=== PATIENT | female | born 1960 | race Caucasian/White ===

== ENCOUNTER 2021-08-30 12:41 | Outpatient (CLI) | payer OTHER, SELFPAY ==
--- NOTE | 2021-08-30 | IMM_PTH ---
PATIENT: TRUONG SMITH LOC: [facility] U#:[id number] AGE/SX: 61/F ROOM: RE08/30/[address]: Dr. Jaqueline Smith MD : 1960 BED: DIS: 08/30/2021 SPEC #: [id number] RECD: 08/31/21 13:54 STATUS: WING REQ #: [id number] MAR: 08/30/21 00:[address]: Jaqueline Smith DEPT: IMMUNOHISTOCHEMISTRY RECD BY: Saira Ca ENTERED: 08/31/21 13:55 SP TYPE: IMMUNO OTHR DR: No Primary Care Phys Tissues: Endocervical Procedures: p16 (initial) KI-67 (add) PHYSICIAN & INSTITUTION [place] [id number] SPECIMEN INFORMATION: Tissue Source: Endocervical curettings Clinical Info: Abnormal pap Specimen Number: [id number] CPT code: 40634, 43344 METHODOLOGY: Deparaffinized sections of prefer/formalin-fixed tissue or PAP/DQ stained slides are incubated with monoclonal/polyclonal antibodies/oligonucleotide probes. Localization is made via biotin free immunoperoxidase method. Appropriate controls are performed and reacted as expected. Results on target cell population are indicated in the following table: RESULTS: ANTIBODY / CLONE RESULT P16 (E6H4) positive, focal, patchy staining Ki-67 (30-9) positive, low These tests were developed and their performance characteristics determined by [facility]. They may not have been cleared or approved by the U.[place]. Food and Drug Administration. The FDA has determined that such clearance or approval is not necessary. The above immunohistochemical/dualISH markers are ordered and reviewed by the Pathologist. INTERPRETATION: Endocervical curettings: Minimal changes suspicious for HPV cytopathic effects. DON:ramakrishna 09/01/2021
--- NOTE | 2021-08-30 | EMB_PTH ---
PATIENT: TRUONG SMITH [facility] U#:[id number] AGE/SX: 61/F ROOM: RE08/30/[address]: Dr. Jaqueline Smith MD : 1960 BED: DIS: 08/30/2021 SPEC #: [id number] RECD: 08/30/21 12:32 STATUS: WING HARLEEN #: [id number] MAR: 08/30/21 00:[address]: Jaqueline Smith DEPT: SURGICAL PATHOLOGY RECD BY: Miranda Eastman ENTERED: 08/30/21 13:23 SP TYPE: ENDOM BX/C ALDO DR: No Primary Care Phys Tissues: Endometrium, NOS Procedures: Surgery Specimen Level IV HEADER OPERATION: Endocervical curettage PRE-OP DIAGNOSIS: Abnormal pap TISSUE SUBMITTED: Endocervical curettings MICROSCOPIC DIAGNOSIS Endocervical curettings: Focal minimal changes suspicious for HPV cytopathic effects. Fragments of benign endocervical mucosa with focal squamous metaplasia. See comment. DON:ramakrishna 08/31/2021 COMMENT Immunohistochemistry ([id number]) for surrogate HPV marker (p16) supports the above diagnosis. Case has been reviewed in consultation with Dr. Porras who concurs with the above diagnosis. IDC:AM MICROSCOPIC DESCRIPTION Slides are reviewed. GROSS DESCRIPTION Received is one container labeled with the patient's name and not further designated. The specimen consists of multiple fragments osborne mucoid tissue that in aggregate measure 2 x 2 x 0.1 cm. The specimen is totally submitted in one cassette. / DON:ramakrishna 08/30/2021 TC:5 CPT: 26165
== END 2021-08-30 23:59 | disposition home or self-care (01) ==
LOC: LABSPEC 13:17
PROVIDERS: Referring Provider Obstetrics & Gynecology; Visit Provider Obstetrics & Gynecology
DX: R87.619 Unspecified abnormal cytological findings in specimens from cervix uteri (principal)
CPT/HCPCS: 88305; 88341; 88342

== ENCOUNTER → 2022-03-09 | Outpatient (CLI) | payer OTHER, SELFPAY ==
--- NOTE | 2022-03-09 | EMB_PTH ---
PATIENT: TRUONG SMITH [facility]#:[id number] AGE/SX: 61/F ROOM: RE03/09/[address]: Dr. Jaqueline Smith MD : 1960 BED: DIS: 03/09/2022 SPEC #: [id number] RECD: 03/09/22 15:51 STATUS: WING HARLEEN #: [id number] MAR: 03/09/22 00:[address]: Jaqueline Smith DEPT: SURGICAL PATHOLOGY RECD BY: Miranda Eastman ENTERED: 03/10/22 09:54 SP TYPE: ENDOM BX/C ALDO DR: Nancy Primary Care Phys Tissues: Endocervical Procedures: Surgery Specimen Level IV HEADER OPERATION: Endocervical curettage PRE-OP DIAGNOSIS: DARION pap TISSUE SUBMITTED: Endocervical curettings MICROSCOPIC DIAGNOSIS Endocervix, curettings: Strips of benign superficial endocervix. Detached fragments of benign squamous mucosa. AM:ramakrishna 03/13/2022 MICROSCOPIC DESCRIPTION Slides are reviewed. GROSS DESCRIPTION Received is one container labeled with the patient's name and not further designated. The specimen consists of multiple irregular fragments of osborne mucoid tissue that in aggregate measure 0.5 x 0.5 x 0.1 cm. The specimen is totally submitted in one cassette. / SJ:ramakrishna 03/10/2022 TC:5 CPT: 30664
== END | disposition home or self-care (01) ==
LOC: LABSPEC 15:53
PROVIDERS: Visit Provider Obstetrics & Gynecology
DX: R89.6 Abnormal cytological findings in specimens from other organs, systems and tissues (principal)
CPT/HCPCS: 88305

== ENCOUNTER → 2022-09-04 | Outpatient (CLI) | payer OTHER, SELFPAY ==
[2022-09-12 16:34] LABS: HPV APTIMA, High Risk Negative (Negative)
== END | disposition home or self-care (01) ==
LOC: LABSPEC 16:16
PROVIDERS: Referring Provider Obstetrics & Gynecology; Visit Provider Obstetrics & Gynecology
DX: R87.619 Unspecified abnormal cytological findings in specimens from cervix uteri (principal)
CPT/HCPCS: 87624; 88175; G0145

== ENCOUNTER → 2024-06-26 | Outpatient (CLI) | payer OTHER, SELFPAY ==
[2024-07-01 16:08] LABS: HPV APTIMA, High Risk Negative (Negative)
== END | disposition home or self-care (01) ==
LOC: LABSPEC 15:21
PROVIDERS: Referring Provider Obstetrics & Gynecology; Visit Provider Obstetrics & Gynecology
DX: R87.619 Unspecified abnormal cytological findings in specimens from cervix uteri (principal)
CPT/HCPCS: 87624; 88175; G0145

== ENCOUNTER → 2024-10-23 | Outpatient (CLI) | payer MEDICARE, SELFPAY ==
--- NOTE | 2024-10-23 16:18 | BD_ITS ---
PROCEDURE: DEXA BONE DENSITY STUDY 10/23/2024 REASON FOR EXAM: ESTROGEN DEFICIENCY F, age 64 y/o . Postmenopausal. TECHNIQUE: DXA scan of sites with data reported below. REFERENCE LINKS: ISCD Adult Positions COMPARISON: None FINDINGS: BMD and T-SCORES Lumbar spine: 1.180 g/cm2, T-score 1.2 Levels: L1 through L4 Left femoral neck: 0.821 g/cm2, T-score -0.3 Femoral neck comparison data not recommended for monitoring change. Left total hip: 1.011 g/cm2, T-score 0.6 Right femoral neck: 0.812 g/cm2, T-score -0.3 Femoral neck comparison data not recommended for monitoring change. Right total hip: 1.064 g/cm2, T-score 1.0 The World Health Organization has defined the following categories based on bone density: Normal bone density: T-score equal to or greater than -1.0 Osteopenia: T-score between -1.0 and -2.5 Osteoporosis: T-score equal to or less than -2.5 The patient does meet the pharmacological treatment recommendations for prevention of osteoporosis. BD/Dexa Bone Density Study IMPRESSION: NORMAL T-SCORES. Recommend follow-up as clinically warranted. Reading Location: [facility]
--- NOTE | 2024-10-23 16:18 | BI_ITS ---
EXAM: SCRN MAMM (CAD)W/CANDICE BILAT 10/23/2024 CLINICAL HISTORY: F, Age 64 y/o , SCREENING MAMMOGRAM TECHNIQUE: Bilateral screening digital breast tomosynthesis with 2D and 3D images. Computer aided detection. COMPARISON: No priors available. FINDINGS: TISSUE DENSITY: The breast tissue is almost entirely fatty. Bilateral Breast Mammographic Findings: No significant masses, calcifications or other abnormalities are identified. BI/SCRN MAMM (CAD)W/CANDICE BILAT IMPRESSION: Right Breast: BIRADS 1 NEGATIVE. Left Breast: BIRADS 1 NEGATIVE. OVERALL FINAL ASSESSMENT: BIRADS 1 NEGATIVE. RECOMMENDATION: Routine annual follow-up in 1 Year A letter with findings and recommendations will be mailed to the patient. Reading Location: [id number]
== END | disposition home or self-care (01) ==
PROVIDERS: PCP Family Medicine; Referring Provider Obstetrics & Gynecology; Visit Provider Obstetrics & Gynecology
DX: Z12.31 Encounter for screening mammogram for malignant neoplasm of breast (principal); Z78.0 Asymptomatic menopausal state; E28.39 Other primary ovarian failure; N95.9 Unspecified menopausal and perimenopausal disorder
CPT/HCPCS: 77063; 77067; 77080